=== PATIENT | male | born 1960 | race Caucasian/White ===

== ENCOUNTER 2022-01-12 16:45 | Emergency (ER) | payer SELFPAY ==
[2022-01-12 18:00] VITALS: BP 98/68; PULSE 104; RESP 18; TEMP 36.6; O2SAT 100
--- NOTE | 2022-01-12 18:06 | XRR_ITS ---
PROCEDURE INFORMATION: Exam: XR Right Hand Exam date and time: 01/12/2022 6:18 PM Age: 61 years old Clinical indication: Pain; Hand; Right; Patient HX: Drill to base of thumb; Additional info: Injury TECHNIQUE: Imaging protocol: Radiologic exam of the Right hand. Views: 3 or more views. COMPARISON: No relevant prior studies available. FINDINGS: Limitations: Splint obscures soft tissues. Bones/joints: Alignment is normal. Moderate joint space narrowing at the 1st metacarpophalangeal joint. Healed fracture of the 3rd metacarpal. No acute fracture. Soft tissues: Grossly unremarkable. XR/XR hand RT min 3V* [id number] IMPRESSION: 1. No visible osseous injury. 2. Limited assessment of soft tissues.
--- NOTE | 2022-01-12 18:57 | ED_ITS ---
HPI - Extremity Problem General: Chief complaint: Extremity Injury, Upper Stated complaint: Left hand injury Time Seen by Provider: 01/12/22 18:57 History of Present Illness: 61-year-old male patient comes in with injury to the right palmar hand at the base of the thumb. Patient was seen at his primary care office and was referred to the ER for further evaluation concerning a bony injury or infection. On Monday patient had injured himself while using a drill accidentally puncturing his hand at the base of the thumb. Patient denies any loss of mobility. Patient does report increasing pain last night. Review of Systems 2 General: Reports: 10 or more systems reviewed and unremarkable except in HPI and below Musc: Reports: extremity pain (Right hand) Skin/Breast: Reports: new lesions Physical Exam Const: COMMON NORMALS: alert HENMT: COMMON NORMALS: normocephalic HEAD & SCALP: normocephalic Neck/C-Spine: COMMON NORMALS: full ROM Resp: COMMON NORMALS: normal respiratory effort Cardio: COMMON NORMALS: regular rate RATE: regular rate Extremity: RIGHT UPPER EXTREMITY: Yes hand & digits (RemainderPuncture wound to the right palmar hand with a surrounding redness) Neuro: SENSORIUM/ORIENTATION: Yes alert Skin: COMMON NORMALS: no rashes or lesions noted GENERAL SKIN EXAM: no rashes or lesions noted Course Vital Signs: Vital signs: Vital Signs Temperature 98 F 01/12/22 18:00 Pulse Rate 104 H 01/12/22 18:00 Respiratory Rate 18 01/12/22 18:00 Blood Pressure 98/68 01/12/22 18:00 Pulse Oximetry 100 01/12/22 18:00 Oxygen Delivery Me thod 01/12/22 18:00 MDM - Extremity (Nontraumatic) Medical Decision Making 61-year-old male patient comes in for injury to the right hand. Injury occurred on Monday. Patient came in today after being seen at his primary care office and for concerns of infection. On exam patient has area of 2 cm with redness with a central puncture wound. Patient has normal range of motion and use of the tendon. Differential diagnosis includes but not limited to puncture wound, fracture, abscess, cellulitis. X-ray of the hand showed no bony injury or signs of osteomyelitis. Patient was treated with antibiotic ceftriaxone for a cellulitis or wound infection. He will be continued on Augmentin. Patient was also given some hydrocodone for pain. Lab Data Radiology Impressions Hand X-Ray 01/12/22 18:06 IMPRESSION: 1. No visible osseous injury. 2. Limited assessment of soft tissues. Discharge Plan Discharge Patient Disposition: Home Clinical Impression: Puncture wound of hand Qualifiers: Encounter type: initial encounter Foreign body presence: without foreign body Laterality: right Qualified Code(s): S61.431A - Puncture wound without foreign body of right hand, initial encounter Condition: Stable Prescriptions: New amoxicillin-pot clavulanate 875-125 mg tablet 1 tab PO BID Qty: 14 0RF hydrocodone-acetaminophen 5-325 mg tablet 1 tab PO Q6H PRN (Reason: pain (scale score 7-10)) Qty: 14 0RF Discharge Orders: Discharge ED (Routine); Ordered 01/12/22 Ordered By: Maldonado Kelley Discharge Diet: Usual diet Discharge Activity: Increase activity as tolerated Patient Instructions: Puncture Wound (ED) Activity Restrictions/Additional Instructions: Take antibiotic as directed. Use acetaminophen and ibuprofen to control pain. Use hydrocodone for severe pain. Follow-up with primary care in 1 week for recheck. Return to ER for high fever, worsening pain and swelling, or new concerns. Coding Level of Care Code ED [employer] F[employer] Exam Expanded Problem Focused
[2022-01-12] MEDS: cefTRIAXone 1,000 MG in lidocaine 1% 2.1 ML 1 MG IM (19:12)
[2022-01-12] MEDS: HYDROcodone-acetaminophen 7.5-325 mg Tablet 1 TAB PO (19:13)
--- NOTE | 2022-01-12 19:24 | PC.NURSE ---
Pt wound cleaned with NS and rede=ressed. Pain medicine and antibiotic given.
[2022-01-12 19:35] VITALS: PULSE 101; RESP 16; O2SAT 100
== END 2022-01-12 19:36 | disposition home or self-care (01) ==
PROVIDERS: Emergency Provider Nurse Practitioner Family
DX: S61.431A Puncture wound without foreign body of right hand, initial encounter (principal); W26.8XXA Contact with other sharp object(s), not elsewhere classified, initial encounter
CPT/HCPCS: 73130; 99284; J0696